=== PATIENT | male | born 1960 | race Caucasian/White ===

== ENCOUNTER 2021-01-06 21:24 | Inpatient (IN) | payer OTHER, SELFPAY ==
[~2021-01-06 21:24] MED LIST: Iopamidol-370 76% 500 ML 1 ML ONE
[2021-01-06 21:51] LABS: INR-International Normal Ratio 1.1; PTT 25.8 sec (22.9-36.1); Prothrombin Time 14.5 sec (12.0-14.7)
[2021-01-06 22:01] LABS: Hemoglobin 16.4 g/dL (14.0-18.0); Mean Corpuscular Hemoglobin 32.2 pg (27.0-31.0); Mean Corpuscular Volume 97.8 fL (78.0-98.0); Mean Platelet Volume 8.3 fL (7.4-10.4); Platelet Count 239 thou/uL (130-400); RBC Distribution Width 12.6 % (11.5-14.5); Red Blood Cell (RBC) Count 5.09 mill/uL (4.70-6.10); White Blood Cell (WBC) Count 28.3 thou/uL (4.8-10.8)
[2021-01-06 22:11] LABS: ALT (SGPT) 41 U/L (8-55); AST (SGOT) 70 U/L (5-34); Albumin 4.1 g/dL (3.5-5.0); Alkaline Phosphatase 112 U/L (40-110); Anion Gap 18 mmol/L (10-20); BUN (Urea Nitrogen) 26 mg/dL (8.4-25.7); Bilirubin, Total 0.4 mg/dL (0.2-1.2); Calc. Creatinine Clearance 0 mL/min (70-130); Calcium 8.7 mg/dL (7.8-10.44); Carbon Dioxide 22 mmol/L (22-29); Chloride 105 mmol/L (98-107); Globulin 2.8 g/dL (2.4-3.5); Glucose 109 mg/dL (70-105); Lipase 58 U/L (8-78); Potassium 4.5 mmol/L (3.5-5.1); Protein, Total 6.9 g/dL (6.0-8.3); Sodium 140 mmol/L (136-145)
[2021-01-06 22:13] LABS: Band 15 % (5-11); Eosinophils 1 % (0-10); Lymphocytes 7 % (21-51); MDiff Complete? YES; Monocytes 15 % (0-10); Neutrophil 61 % (42-75); Platelet Morphology Comment Appears Adequate; Reactive Lymphocytes 1 % (0-10)
[2021-01-06] MEDS ORDERED: Fentanyl 100 MCG/2 ML VIAL ONE (22:44)
[2021-01-06] MEDS ORDERED: Ketorolac Tromethamine 30 MG/ML VIAL ONE (22:44)
[2021-01-06] MEDS ORDERED: hydrALAZINE 20 MG/ML VIAL SLOW IVP PRN (23:06)
[2021-01-06] MEDS ORDERED: Dextrose 5% in Water 1,000 ML IV PRN (23:06)
[2021-01-06] MEDS ORDERED: Dextrose 50% Abboject 50 ML SYRINGE SLOW IVP PRN (23:06)
[2021-01-06] MEDS ORDERED: Ondansetron PF 4 MG/2 ML Vial IVP PRN (23:06)
[2021-01-06] MEDS ORDERED: Boostrix 0.5 ML (Tdap) VIAL ONE (23:13)
[2021-01-06] MEDS ORDERED: Cyclobenzaprine 10 MG TAB PO PRN (23:13)
[2021-01-07 00:26] LABS: Bacteria/HPF None Seen HPF (None Seen); Bilirubin Negative (Negative); Blood, Urine 2+ (Negative); Clarity Clear (Clear); Glucose, Urine (Dipstick) Normal (Negative); Ketone, Urine Negative (Negative); Leukocyte Negative Leu/uL (Negative); Nitrite Negative (Negative); Protein, Urine (Dipstick) 30 mg/dL (Neg-Trace); Squamous Epithelial 0-3 HPF (0-3); Urobilinogen Normal mg/dL (Less than 2); WBC/HPF 0-3 HPF (0-3); pH, Urine 5.5 (5.0-9.0)
[2021-01-07 00:28] LABS: Specific Gravity, Urine 1.049 (1.002-1.036)
[2021-01-07 00:47] LABS: Lactic Acid 3.8 mmol/L (0.5-2.2)
[2021-01-07] MEDS ORDERED: Lidocaine 1% w/Epinephrine 1:100K 20 ML VIAL ONE (00:53)
[2021-01-07] MEDS ORDERED: Lidocaine 1% (PF) 30 ML VIAL ONE (01:35)
[2021-01-07] MEDS: traMADol HCl 50 MG TAB PO SCH ×4 (02:43→18:33)
[2021-01-07] MEDS: Acetaminophen 500 MG TAB PO SCH ×4 (02:43→18:33)
[2021-01-07 02:47] VITALS: BMI 26.0
[2021-01-07] MEDS: Morphine 4 MG/ML VIAL SLOW IVP PRN ×3 (03:13→11:28)
[2021-01-07] MEDS: Sodium Chloride 0.9% 1,000 ML IV SCH ×3 (04:11→17:24)
[2021-01-07] MEDS: Ibuprofen 600 MG TAB PO SCH ×2 (04:29→13:00)
[2021-01-07 07:09] LABS: Anion Gap 12 mmol/L (10-20); BUN (Urea Nitrogen) 25 mg/dL (8.4-25.7); Calc. Creatinine Clearance 133 mL/min (70-130); Calcium 8.5 mg/dL (7.8-10.44); Carbon Dioxide 24 mmol/L (22-29); Chloride 107 mmol/L (98-107); Glucose 128 mg/dL (70-105); Phosphorus 3.5 mg/dL (2.3-4.7); Potassium 4.5 mmol/L (3.5-5.1); Sodium 138 mmol/L (136-145)
[2021-01-07 07:12] LABS: Hemoglobin 15.8 g/dL (14.0-18.0); Mean Corpuscular HGB CONC 33.9 g/dL (32.0-36.0); Mean Corpuscular Hemoglobin 32.6 pg (27.0-31.0); Mean Corpuscular Volume 96.2 fL (78.0-98.0); Mean Platelet Volume 8.3 fL (7.4-10.4); Platelet Count 228 thou/uL (130-400); RBC Distribution Width 12.4 % (11.5-14.5); Red Blood Cell (RBC) Count 4.84 mill/uL (4.70-6.10); White Blood Cell (WBC) Count 14.8 thou/uL (4.8-10.8)
[2021-01-07 08:40] LABS: Band 46 % (5-11); Eosinophils 1 % (0-10); Lymphocytes 4 % (21-51); MDiff Complete? YES; Monocytes 10 % (0-10); Neutrophil 39 % (42-75); Platelet Morphology Comment Appears Adequate; RBC Morphology Normal
[2021-01-07] MEDS: Famotidine/PF 20 mg/2ml Vial SLOW IVP SCH ×2 (08:41→21:03)
[2021-01-07] MEDS: CEFAZOLIN 2 GM in Premix Bag 1 BAG IVPB SCH ×2 (08:41→17:25)
[2021-01-07] MEDS: Gabapentin 300 MG CAP PO SCH ×2 (08:41→15:33)
[2021-01-07] MEDS: Polyethylene Glycol 3350 17 GM Packet PO SCH (08:42)
[2021-01-07] MEDS: Senokot S 8.6-50 MG TAB PO SCH ×2 (08:42→21:03)
[2021-01-07] MEDS ORDERED: FLU VACC QS2020-21(6MOS UP)/PF 60 MCG/0.5 ML SYRINGE IM ONE (09:00)
[2021-01-07 09:07] LABS: SARS-CoV-2 PCR by NAA Not Detected (NotDetected)
[2021-01-07] MEDS ORDERED: Dexamethasone 20 MG/5 ML VIAL ONE (09:51)
[2021-01-07] MEDS ORDERED: Glycopyrrolate 0.2 MG/ML 5 ML SYRINGE ONE (09:51)
[2021-01-07] MEDS ORDERED: PROPOFOL 200 MG/20 ML VIAL ONE (09:51)
[2021-01-07] MEDS ORDERED: Ondansetron PF 4 MG/2 ML Vial ONE (09:51)
[2021-01-07] MEDS ORDERED: Rocuronium Bromide 10 MG/ML (10ML VIAL) ONE (09:51)
[2021-01-07] MEDS ORDERED: PHENYLEPHRINE-NS 100 MCG/ML 10 ML SYRINGE ONE (09:51)
[2021-01-07] MEDS ORDERED: Lidocaine 1% PF 5 ML VIAL ONE (09:51)
[2021-01-07 13:09] LABS: #Lymphocytes 0.9 thou/uL (1.20-3.40); #Monocytes 1.3 thou/uL (0.11-0.59); #Neutrophils 10.3 thou/uL (1.40-6.50); %Basophils 0.1 % (0.0-1.0); %Lymphocytes 6.8 % (21.0-51.0); %Monocytes 10.7 % (0.0-10.0); %Neutrophils 82.4 % (42.0-75.0); Hemoglobin 15.7 g/dL (14.0-18.0); Mean Corpuscular HGB CONC 32.9 g/dL (32.0-36.0); Mean Corpuscular Hemoglobin 31.7 pg (27.0-31.0); Mean Corpuscular Volume 96.4 fL (78.0-98.0); Platelet Count 221 thou/uL (130-400); RBC Distribution Width 12.6 % (11.5-14.5); Red Blood Cell (RBC) Count 4.94 mill/uL (4.70-6.10); White Blood Cell (WBC) Count 12.5 thou/uL (4.8-10.8)
[2021-01-07 13:34] LABS: Lactic Acid 1.2 mmol/L (0.5-2.2)
[2021-01-07] MEDS ORDERED: CEFAZOLIN 2 GM in Premix Bag 1 BAG IVPB SCH (14:00)
[2021-01-07] MEDS ORDERED: Iopamidol-370 76% 500 ML 1 ML ONE (14:25)
[2021-01-07] MEDS ORDERED: Vancomycin 1 GM in Premix Bag 1 BAG IVPB SCH (16:00)
[2021-01-07 16:42] LABS: INR-International Normal Ratio 1.2; PTT 27.8 sec (22.9-36.1); Prothrombin Time 15.9 sec (12.0-14.7)
[2021-01-07] MEDS ORDERED: Fentanyl 250 MCG/5 ML VIAL ONE (16:55)
[2021-01-07] MEDS ORDERED: Piperacillin/Tazobactam 3.375 GM VIAL ONE (17:16)
[2021-01-07] MEDS ORDERED: Ondansetron HCl/PF 4 MG/2 ML Vial IVP PRN (18:44)
[2021-01-07] MEDS ORDERED: Promethazine HCl 25 MG/ML VIAL SLOW IVP PRN (18:44)
[2021-01-07] MEDS ORDERED: Promethazine HCl 25 MG/ML VIAL IM PRN ×2 (18:44→19:07)
[2021-01-07 18:57] LABS: Amphetamine Not Detected (NotDetected); Barbiturates Screen Not Detected (NotDetected); Benzodiazepine Screen Not Detected (NotDetected); Cocaine Metabolite Screen Not Detected (NotDetected); Medtox Control Line Valid? VALID (VALID); Medtox Reader # READER 1; Methadone Not Detected (NotDetected); Methamphetamine Not Detected (NotDetected); Opiate Screen Not Detected (NotDetected); Oxycodone Screen Not Detected (NotDetected); Phencyclidine (PCP) Not Detected (NotDetected); THC/Cannabinoid Screen Not Detected (NotDetected); Tricyclic Screen Not Detected (NotDetected)
[2021-01-07] MEDS ORDERED: D5 0.9% NS w/ 20 mEq KCl 1,000 ML IV SCH (19:00)
[2021-01-07] MEDS ORDERED: diphenhydrAMINE 50 MG/ML VIAL IVP PRN (19:07)
[2021-01-07] MEDS ORDERED: Naloxone HCl 0.4 mg/ml Vial IV PRN (19:07)
[2021-01-07] MEDS ORDERED: diphenhydrAMINE 50 MG/ML VIAL IM PRN (19:07)
[2021-01-07] MEDS ORDERED: diphenhydrAMINE 25 MG CAP PO PRN (19:07)
[2021-01-07] MEDS ORDERED: Ketorolac Tromethamine 30 MG/ML VIAL ONE (19:12)
[2021-01-07] MEDS ORDERED: HYDROmorphone 10 mg/100 ml CADD IVPB PRN (19:15)
[2021-01-07] MEDS ORDERED: Communication Order-Pharmacy FS SCH (19:15)
[2021-01-07] MEDS: Ketorolac Tromethamine 30 MG/ML VIAL IVP SCH (21:02)
[2021-01-07] MEDS: D5 0.9% NS w/ 20 mEq KCl 1,000 ML IV SCH (21:12)
[2021-01-07] MEDS: MEROPENEM 1 GM/50 ML 1 GM in Premix Bag 1 BAG IVPB SCH (21:15)
[2021-01-07] MEDS ORDERED: Meropenem 2 GM in Admixture Fee 1 EACH IVPB SCH (22:00)
[2021-01-07] MEDS ORDERED: Piperacillin/Tazobactam 3.375 GM in Sodium Chloride 0.9% 100 ML IVPB SCH (23:59)
[2021-01-07] MEDS ORDERED: Ketorolac Tromethamine 30 MG/ML VIAL IVP SCH (23:59)
[2021-01-08] MEDS: Ketorolac Tromethamine 30 MG/ML VIAL IVP SCH ×6 (01:47→21:42)
[2021-01-08] MEDS: MEROPENEM 1 GM/50 ML 1 GM in Premix Bag 1 BAG IVPB SCH ×3 (03:09→21:32)
[2021-01-08] MEDS: D5 0.9% NS w/ 20 mEq KCl 1,000 ML IV SCH ×3 (05:21→21:31)
[2021-01-08 06:08] LABS: Band 40 % (5-11); Hemoglobin 14.5 g/dL (14.0-18.0); Lymphocytes 5 % (21-51); MDiff Complete? YES; Mean Corpuscular HGB CONC 31.1 g/dL (32.0-36.0); Mean Corpuscular Hemoglobin 30.5 pg (27.0-31.0); Mean Corpuscular Volume 98.2 fL (78.0-98.0); Mean Platelet Volume 8.7 fL (7.4-10.4); Monocytes 12 % (0-10); Neutrophil 43 % (42-75); Platelet Count 202 thou/uL (130-400); Platelet Morphology Comment Appears Adequate; RBC Distribution Width 12.5 % (11.5-14.5); RBC Morphology Normal; Red Blood Cell (RBC) Count 4.73 mill/uL (4.70-6.10); White Blood Cell (WBC) Count 12.8 thou/uL (4.8-10.8)
[2021-01-08 06:10] LABS: Anion Gap 7 mmol/L (10-20); BUN (Urea Nitrogen) 22 mg/dL (8.4-25.7); Calc. Creatinine Clearance 126 mL/min (70-130); Calcium 7.8 mg/dL (7.8-10.44); Carbon Dioxide 29 mmol/L (22-29); Chloride 108 mmol/L (98-107); Glucose 147 mg/dL (70-105); Magnesium 2.3 mg/dL (1.6-2.6); Phosphorus 1.9 mg/dL (2.3-4.7); Potassium 4.9 mmol/L (3.5-5.1); Sodium 139 mmol/L (136-145)
[2021-01-08] MEDS ORDERED: Sodium Phosphate 30 MMOL in Sodium Chloride 0.9% 100 ML IVPB SCH (08:00)
[2021-01-08] MEDS: Senokot S 8.6-50 MG TAB PO SCH ×2 (08:51→21:27)
[2021-01-08] MEDS: Famotidine/PF 20 mg/2ml Vial SLOW IVP SCH ×2 (08:51→21:32)
[2021-01-08] MEDS: Polyethylene Glycol 3350 17 GM Packet PO SCH (08:52)
[2021-01-08] MEDS ORDERED: Lidocaine 1% PF 5 ML VIAL ONE (10:06)
[2021-01-08] MEDS ORDERED: Ondansetron PF 4 MG/2 ML Vial ONE (10:06)
[2021-01-08] MEDS ORDERED: PROPOFOL 200 MG/20 ML VIAL ONE (10:06)
[2021-01-08] MEDS ORDERED: Rocuronium Bromide 10 MG/ML (10ML VIAL) ONE (10:06)
[2021-01-08] MEDS ORDERED: Dexamethasone 20 MG/5 ML VIAL ONE (10:06)
[2021-01-08] MEDS ORDERED: Glycopyrrolate 0.2 MG/ML 5 ML SYRINGE ONE (10:06)
[2021-01-08] MEDS ORDERED: Succinylcholine 200 MG/10 ml SYRINGE FS ONE (10:06)
[2021-01-08] MEDS ORDERED: Vancomycin 1 GM/200 ML BAG ONE (16:54)
[2021-01-08] MEDS ORDERED: Bacitracin Zinc Ointment 30 gm TUBE ONE (16:55)
[2021-01-08] MEDS ORDERED: Sodium Chloride 0.9% 10 ML ONE (16:55)
[2021-01-08] MEDS ORDERED: Bupivacaine 0.25% HCL 30 ML VIAL ONE (16:55)
[2021-01-08] MEDS ORDERED: Fentanyl 100 MCG/2 ML VIAL ONE ×2 (17:21→20:48)
[2021-01-08] MEDS ORDERED: Meperidine HCl/PF 25 MG/ML VIAL SLOW IVP PRN (17:24)
[2021-01-08] MEDS ORDERED: Promethazine HCl 25 MG/ML VIAL SLOW IVP PRN (17:24)
[2021-01-08] MEDS ORDERED: Promethazine HCl 25 MG/ML VIAL IM PRN (17:24)
[2021-01-08] MEDS ORDERED: HYDROmorphone 2 MG/ML VIAL SLOW IVP PRN (17:24)
[2021-01-08] MEDS ORDERED: Ondansetron HCl/PF 4 MG/2 ML Vial IVP PRN (17:38)
[2021-01-09] MEDS: HYDROmorphone 10 mg/100 ml CADD IVPB PRN (01:28)
[2021-01-09] MEDS: Ketorolac Tromethamine 30 MG/ML VIAL IVP SCH ×5 (04:38→22:38)
[2021-01-09] MEDS: MEROPENEM 1 GM/50 ML 1 GM in Premix Bag 1 BAG IVPB SCH ×3 (04:38→20:13)
[2021-01-09 06:32] LABS: Hemoglobin 12.3 g/dL (14.0-18.0); Mean Corpuscular HGB CONC 31.7 g/dL (32.0-36.0); Mean Corpuscular Hemoglobin 31.9 pg (27.0-31.0); Mean Platelet Volume 8.7 fL (7.4-10.4); Platelet Count 164 thou/uL (130-400); RBC Distribution Width 12.3 % (11.5-14.5); Red Blood Cell (RBC) Count 3.86 mill/uL (4.70-6.10); White Blood Cell (WBC) Count 11.7 thou/uL (4.8-10.8)
[2021-01-09 06:58] LABS: Anion Gap 9 mmol/L (10-20); BUN (Urea Nitrogen) 23 mg/dL (8.4-25.7); Calc. Creatinine Clearance 142 mL/min (70-130); Calcium 7.5 mg/dL (7.8-10.44); Carbon Dioxide 24 mmol/L (22-29); Chloride 111 mmol/L (98-107); Glucose 121 mg/dL (70-105); Magnesium 2.6 mg/dL (1.6-2.6); Sodium 139 mmol/L (136-145)
[2021-01-09] MEDS: Polyethylene Glycol 3350 17 GM Packet PO SCH (09:03)
[2021-01-09] MEDS: Senokot S 8.6-50 MG TAB PO SCH ×2 (09:03→20:13)
[2021-01-09] MEDS: Famotidine/PF 20 mg/2ml Vial SLOW IVP SCH ×2 (09:03→20:13)
[2021-01-09] MEDS ORDERED: SODIUM PHOSPHATE 30 MMOL in Sodium Chloride 0.9% 250 ML 250 ML IVPB SCH (11:15)
[2021-01-09] MEDS ORDERED: Dextrose 5%-Lactated Ringers 1,000 ML IV SCH (11:30)
[2021-01-09] MEDS: D5 0.9% NS w/ 20 mEq KCl 1,000 ML IV SCH (13:28)
[2021-01-09] MEDS: Lactated Ringer's 1,000 ML IV SCH ×2 (14:26→20:13)
[2021-01-10] MEDS: MEROPENEM 1 GM/50 ML 1 GM in Premix Bag 1 BAG IVPB SCH ×3 (03:21→21:25)
[2021-01-10 05:58] LABS: #Eosinphils 0.1 thou/uL (0.0-0.7); #Lymphocytes 1.4 thou/uL (1.20-3.40); #Monocytes 1.2 thou/uL (0.11-0.59); #Neutrophils 8.7 thou/uL (1.40-6.50); %Basophils 0.1 % (0.0-1.0); %Eosinophils 0.6 % (0.0-10.0); %Lymphocytes 12.4 % (21.0-51.0); %Monocytes 10.6 % (0.0-10.0); %Neutrophils 76.4 % (42.0-75.0); Hemoglobin 12.2 g/dL (14.0-18.0); Mean Corpuscular HGB CONC 32.4 g/dL (32.0-36.0); Mean Corpuscular Hemoglobin 31.8 pg (27.0-31.0); Mean Corpuscular Volume 98.1 fL (78.0-98.0); Mean Platelet Volume 8.2 fL (7.4-10.4); Platelet Count 183 thou/uL (130-400); RBC Distribution Width 12.3 % (11.5-14.5); Red Blood Cell (RBC) Count 3.82 mill/uL (4.70-6.10); White Blood Cell (WBC) Count 11.4 thou/uL (4.8-10.8)
[2021-01-10 06:54] LABS: Anion Gap 12 mmol/L (10-20); BUN (Urea Nitrogen) 21 mg/dL (8.4-25.7); Calc. Creatinine Clearance 156 mL/min (70-130); Calcium 7.8 mg/dL (7.8-10.44); Carbon Dioxide 25 mmol/L (22-29); Chloride 109 mmol/L (98-107); Glucose 79 mg/dL (70-105); Magnesium 2.5 mg/dL (1.6-2.6); Potassium 4.3 mmol/L (3.5-5.1); Sodium 142 mmol/L (136-145)
[2021-01-10 06:56] LABS: Phosphorus 1.9 mg/dL (2.3-4.7)
[2021-01-10] MEDS: Polyethylene Glycol 3350 17 GM Packet PO SCH (09:55)
[2021-01-10] MEDS: Famotidine/PF 20 mg/2ml Vial SLOW IVP SCH ×2 (09:55→21:25)
[2021-01-10] MEDS: Senokot S 8.6-50 MG TAB PO SCH (09:55)
[2021-01-10] MEDS: Sodium Phosphate 30 MMOL in Sodium Chloride 0.9% 250 ML 250 ML IVPB SCH ×2 (09:55→17:25)
[2021-01-10] MEDS: Ketorolac Tromethamine 30 MG/ML VIAL IVP SCH (21:25)
[2021-01-10] MEDS ORDERED: Potassium Chloride 10 MEQ in Dextrose 5 % And 0.9 % NaCl 1,000 ML IV SCH (23:55)
[2021-01-11] MEDS: MEROPENEM 1 GM/50 ML 1 GM in Premix Bag 1 BAG IVPB SCH ×3 (04:03→21:18)
[2021-01-11 05:29] LABS: #Eosinphils 0.1 thou/uL (0.0-0.7); #Lymphocytes 1.4 thou/uL (1.20-3.40); #Monocytes 1.9 thou/uL (0.11-0.59); %Basophils 0.1 % (0.0-1.0); %Lymphocytes 10.3 % (21.0-51.0); %Monocytes 13.9 % (0.0-10.0); %Neutrophils 74.8 % (42.0-75.0); Hemoglobin 13.9 g/dL (14.0-18.0); Mean Corpuscular Hemoglobin 32.2 pg (27.0-31.0); Mean Corpuscular Volume 97.7 fL (78.0-98.0); Platelet Count 192 thou/uL (130-400); RBC Distribution Width 12.2 % (11.5-14.5); Red Blood Cell (RBC) Count 4.32 mill/uL (4.70-6.10); White Blood Cell (WBC) Count 13.3 thou/uL (4.8-10.8)
[2021-01-11] MEDS: HYDROmorphone 10 mg/100 ml CADD IVPB PRN (06:18)
[2021-01-11 06:31] LABS: Anion Gap 11 mmol/L (10-20); BUN (Urea Nitrogen) 17 mg/dL (8.4-25.7); Calc. Creatinine Clearance 169 mL/min (70-130); Carbon Dioxide 26 mmol/L (22-29); Chloride 108 mmol/L (98-107); Glucose 106 mg/dL (70-105); Phosphorus 2.6 mg/dL (2.3-4.7); Potassium 4.2 mmol/L (3.5-5.1); Sodium 141 mmol/L (136-145)
[2021-01-11] MEDS: Polyethylene Glycol 3350 17 GM Packet PO SCH (09:45)
[2021-01-11] MEDS: Enoxaparin Sodium 30 MG/0.3 ML SYRINGE SC SCH ×2 (09:47→21:19)
[2021-01-11] MEDS ORDERED: Sodium Phosphate 30 MMOL in Sodium Chloride 0.9% 250 ML 250 ML IVPB SCH (10:00)
[2021-01-11] MEDS: Famotidine/PF 20 mg/2ml Vial SLOW IVP SCH ×2 (10:03→21:19)
[2021-01-11] MEDS: Potassium Chloride 10 MEQ in Dextrose 5 % And 0.9 % NaCl 1,000 ML IV SCH ×2 (17:43→18:38)
[2021-01-11] MEDS: Ketorolac Tromethamine 30 MG/ML VIAL IVP SCH (21:15)
[2021-01-11] MEDS: Acetaminophen 500 MG TAB PO SCH (21:19)
[2021-01-11] MEDS: Gabapentin 300 MG CAP PO SCH (21:19)
[2021-01-11] MEDS: Senokot S 8.6-50 MG TAB PO SCH (21:20)
[2021-01-12] MEDS: Acetaminophen 500 MG TAB PO SCH ×4 (04:12→20:25)
[2021-01-12] MEDS: MEROPENEM 1 GM/50 ML 1 GM in Premix Bag 1 BAG IVPB SCH (05:03)
[2021-01-12] MEDS: Potassium Chloride 10 MEQ in Dextrose 5 % And 0.9 % NaCl 1,000 ML IV SCH ×3 (05:04→19:25)
[2021-01-12 06:06] LABS: Hemoglobin 13.1 g/dL (14.0-18.0); Mean Corpuscular HGB CONC 33.1 g/dL (32.0-36.0); Mean Corpuscular Hemoglobin 31.9 pg (27.0-31.0); Mean Corpuscular Volume 96.3 fL (78.0-98.0); Platelet Count 212 thou/uL (130-400); RBC Distribution Width 12.2 % (11.5-14.5); Red Blood Cell (RBC) Count 4.12 mill/uL (4.70-6.10); White Blood Cell (WBC) Count 14.7 thou/uL (4.8-10.8)
[2021-01-12 06:07] LABS: Anion Gap 10 mmol/L (10-20); BUN (Urea Nitrogen) 15 mg/dL (8.4-25.7); Calc. Creatinine Clearance 191 mL/min (70-130); Carbon Dioxide 25 mmol/L (22-29); Chloride 108 mmol/L (98-107); Glucose 105 mg/dL (70-105); Phosphorus 2.8 mg/dL (2.3-4.7); Sodium 139 mmol/L (136-145)
[2021-01-12] MEDS ORDERED: traMADol HCl 50 MG TAB PO PRN (08:26)
[2021-01-12] MEDS ORDERED: Ibuprofen 200 MG TAB PO PRN (08:26)
[2021-01-12] MEDS: Senokot S 8.6-50 MG TAB PO SCH ×2 (08:38→20:25)
[2021-01-12] MEDS: Famotidine 20 MG TAB PO SCH ×2 (08:38→20:25)
[2021-01-12] MEDS: Gabapentin 300 MG CAP PO SCH ×3 (08:39→20:25)
[2021-01-12] MEDS: Enoxaparin Sodium 30 MG/0.3 ML SYRINGE SC SCH ×2 (08:39→20:26)
[2021-01-12] MEDS: Polyethylene Glycol 3350 17 GM Packet PO SCH (08:50)
[2021-01-12 09:15] LABS: Band 8 % (5-11); Eosinophils 2 % (0-10); Lymphocytes 13 % (21-51); MDiff Complete? YES; Monocytes 17 % (0-10); Myelocyte 2 % (0-0); Neutrophil 58 % (42-75); Platelet Morphology Comment Appears Adequate; Polychromasia SLIGHT = 2-3 cells (100X) (0-2/hpf)
[2021-01-12] MEDS ORDERED: Furosemide 20 MG/2 ML VIAL SLOW IVP SCH (11:00)
[2021-01-13] MEDS: Acetaminophen 500 MG TAB PO SCH ×4 (03:02→19:48)
[2021-01-13] MEDS: Potassium Chloride 10 MEQ in Dextrose 5 % And 0.9 % NaCl 1,000 ML IV SCH ×4 (03:06→21:20)
[2021-01-13] MEDS: Enoxaparin Sodium 30 MG/0.3 ML SYRINGE SC SCH ×2 (08:30→19:49)
[2021-01-13] MEDS: Polyethylene Glycol 3350 17 GM Packet PO SCH (08:30)
[2021-01-13] MEDS: Gabapentin 300 MG CAP PO SCH ×3 (08:31→19:48)
[2021-01-13] MEDS: Senokot S 8.6-50 MG TAB PO SCH ×2 (08:32→19:49)
[2021-01-13] MEDS: Famotidine 20 MG TAB PO SCH ×2 (08:32→19:49)
[2021-01-13] MEDS: Amlodipine 5 MG TAB PO SCH (09:22)
[2021-01-13] MEDS: traMADol HCl 50 MG TAB PO PRN ×2 (12:14→17:48)
[2021-01-13] MEDS: Cyclobenzaprine 10 MG TAB PO PRN (19:48)
[2021-01-14] MEDS: Cyclobenzaprine 10 MG TAB PO PRN ×2 (03:20→20:07)
[2021-01-14] MEDS: Acetaminophen 500 MG TAB PO SCH ×4 (03:20→20:07)
[2021-01-14] MEDS: traMADol HCl 50 MG TAB PO PRN (07:00)
[2021-01-14] MEDS: Gabapentin 300 MG CAP PO SCH ×3 (09:37→20:07)
[2021-01-14] MEDS: Senokot S 8.6-50 MG TAB PO SCH ×2 (09:37→20:07)
[2021-01-14] MEDS: Amlodipine 5 MG TAB PO SCH (09:38)
[2021-01-14] MEDS: Polyethylene Glycol 3350 17 GM Packet PO SCH (09:40)
[2021-01-14] MEDS: Enoxaparin Sodium 30 MG/0.3 ML SYRINGE SC SCH ×2 (09:40→20:07)
[2021-01-14] MEDS: traMADol HCl 50 MG TAB PO SCH ×2 (13:34→17:49)
[2021-01-14] MEDS: GUAIFENESIN SF SOLN 200 MG/10 ML UDCUP PO SCH ×3 (13:35→20:08)
[2021-01-14] MEDS: Famotidine 20 MG TAB PO SCH (14:35)
[2021-01-15] MEDS: traMADol HCl 50 MG TAB PO SCH ×4 (00:04→17:25)
[2021-01-15] MEDS: GUAIFENESIN SF SOLN 200 MG/10 ML UDCUP PO SCH ×6 (00:05→20:37)
[2021-01-15] MEDS: Acetaminophen 500 MG TAB PO SCH ×4 (03:27→20:36)
[2021-01-15] MEDS: Gabapentin 300 MG CAP PO SCH ×3 (09:04→20:36)
[2021-01-15] MEDS: Enoxaparin Sodium 30 MG/0.3 ML SYRINGE SC SCH ×2 (09:05→20:37)
[2021-01-15] MEDS: Polyethylene Glycol 3350 17 GM Packet PO SCH (09:05)
[2021-01-15] MEDS: Amlodipine 5 MG TAB PO SCH (09:05)
[2021-01-15] MEDS: Senokot S 8.6-50 MG TAB PO SCH ×2 (09:05→20:44)
[2021-01-15] MEDS: Cyclobenzaprine 10 MG TAB PO PRN (20:36)
[2021-01-16] MEDS: traMADol HCl 50 MG TAB PO SCH ×3 (00:01→12:45)
[2021-01-16] MEDS: GUAIFENESIN SF SOLN 200 MG/10 ML UDCUP PO SCH ×4 (00:01→12:45)
[2021-01-16] MEDS: Acetaminophen 500 MG TAB PO SCH ×2 (04:13→08:14)
[2021-01-16] MEDS: Cyclobenzaprine 10 MG TAB PO PRN (04:15)
[2021-01-16] MEDS: Enoxaparin Sodium 30 MG/0.3 ML SYRINGE SC SCH (08:08)
[2021-01-16] MEDS: Gabapentin 300 MG CAP PO SCH (08:09)
[2021-01-16] MEDS: Amlodipine 5 MG TAB PO SCH (08:09)
[2021-01-16] MEDS: Polyethylene Glycol 3350 17 GM Packet PO SCH (09:21)
[2021-01-16] MEDS: Senokot S 8.6-50 MG TAB PO SCH (09:21)
[2021-01-16 11:00] VITALS: BP 124/79; TEMP 98.3
== END 2021-01-16 16:34 | disposition home or self-care (01) | DRG 957 ==
LOC: ERS 21:24 → SURG B 23:06
PROVIDERS: ADMIT Specialist; ATTEND Specialist
PROC: 3E0234Z Introduction of Serum, Toxoid and Vaccine into Muscle, Percutaneous Approach (ICD-10-PCS; 2021-01-06)
PROC: 0DQ80ZZ Repair Small Intestine, Open Approach (ICD-10-PCS; 2021-01-07)
PROC: 0PSR04Z Reposition Right Thumb Phalanx with Internal Fixation Device, Open Approach (ICD-10-PCS; principal; 2021-01-08)
PROC: 0JBJ0ZZ Excision of Right Hand Subcutaneous Tissue and Fascia, Open Approach (ICD-10-PCS; 2021-01-08)
PROC: 01Q60ZZ Repair Radial Nerve, Open Approach (ICD-10-PCS; 2021-01-08)
PROC: 0HQQXZZ Repair Finger Nail, External Approach (ICD-10-PCS; 2021-01-08)
PROC: 0HBQXZZ Excision of Finger Nail, External Approach (ICD-10-PCS; 2021-01-08)
DX: S62.511B Displaced fracture of proximal phalanx of right thumb, initial encounter for open fracture (principal); S36.032A Major laceration of spleen, initial encounter; S22.5XXA Flail chest, initial encounter for closed fracture; Z23 Encounter for immunization; Z20.822 Contact with and (suspected) exposure to COVID-19; K65.9 Peritonitis, unspecified; S27.0XXA Traumatic pneumothorax, initial encounter; S32.039A Unspecified fracture of third lumbar vertebra, initial encounter for closed fracture; H54.40 Blindness, one eye, unspecified eye; F17.210 Nicotine dependence, cigarettes, uncomplicated; S00.83XA Contusion of other part of head, initial encounter; S61.411A Laceration without foreign body of right hand, initial encounter; S02.2XXA Fracture of nasal bones, initial encounter for closed fracture; S62.521A Displaced fracture of distal phalanx of right thumb, initial encounter for closed fracture; S62.612A Displaced fracture of proximal phalanx of right middle finger, initial encounter for closed fracture; E83.39 Other disorders of phosphorus metabolism; S42.112A Displaced fracture of body of scapula, left shoulder, initial encounter for closed fracture; K59.00 Constipation, unspecified; S36.438 Laceration of other part of small intestine; V44.5XXA Car driver injured in collision with heavy transport vehicle or bus in traffic accident, initial encounter; Z88.0 Allergy status to penicillin
CPT/HCPCS: 36415; 36416; 51702; 70450; 71045; 71260; 72125; 72170; 74018; 74177; 76000; 80048; 80053; 80306; 80307; 81003; 81015; 83605; 83690; 83735; 84100; 85025; 85027; 85610; 85730; 86850; 86900; 86901; 87070; 87205; 87635; 90471; 90715; 94640; 96365; 96375; C1713; G0390; J0690; J1100; J1650; J1885; J1940; J2001; J2185; J2270; J2405; J2543; J2704; J3010; J3370; J3480; J3490; J7042; J7050; J7620; Q9967; S0020; S0028; U0003; U0005

== ENCOUNTER 2021-02-19 16:31 | Inpatient (IN) | payer OTHER, SELFPAY ==
[2021-02-19] MEDS ORDERED: Sodium Chloride 0.9% 10 ML ONE (17:50)
[2021-02-19 17:53] LABS: SARS-CoV-2 NAA Rapid Test Not Detected (NotDetected)
[2021-02-19 17:53] LABS: #Basophils 0.1 thou/uL (0.0-0.2); #Eosinphils 3.2 thou/uL (0.0-0.7); #Lymphocytes 2.6 thou/uL (1.20-3.40); #Monocytes 1.3 thou/uL (0.11-0.59); #Neutrophils 6.5 thou/uL (1.40-6.50); %Eosinophils 23.5 % (0.0-10.0); %Lymphocytes 19.2 % (21.0-51.0); %Monocytes 9.1 % (0.0-10.0); %Neutrophils 47.3 % (42.0-75.0); Hemoglobin 14.8 g/dL (14.0-18.0); Mean Corpuscular HGB CONC 32.7 g/dL (32.0-36.0); Mean Corpuscular Hemoglobin 31.4 pg (27.0-31.0); Mean Corpuscular Volume 96.3 fL (78.0-98.0); Mean Platelet Volume 7.3 fL (7.4-10.4); Platelet Count 378 thou/uL (130-400); RBC Distribution Width 12.4 % (11.5-14.5); Red Blood Cell (RBC) Count 4.72 mill/uL (4.70-6.10); White Blood Cell (WBC) Count 13.8 thou/uL (4.8-10.8)
[2021-02-19 18:12] LABS: Anion Gap 13 mmol/L (10-20); BUN (Urea Nitrogen) 13 mg/dL (8.4-25.7); Calc. Creatinine Clearance 0 mL/min (70-130); Carbon Dioxide 30 mmol/L (22-29); Chloride 100 mmol/L (98-107); Glucose 85 mg/dL (70-105); Sodium 139 mmol/L (136-145)
[2021-02-19 18:27] LABS: Bacteria/HPF None Seen HPF (None Seen); Bilirubin Negative (Negative); Blood, Urine Negative (Negative); Clarity Clear (Clear); Glucose, Urine (Dipstick) Normal (Negative); Ketone, Urine Negative (Negative); Leukocyte Negative Leu/uL (Negative); Nitrite Negative (Negative); Protein, Urine (Dipstick) 20 mg/dL (Neg-Trace); RBC/HPF 0-3 HPF (0-3); Specific Gravity, Urine 1.027 (1.002-1.036); Squamous Epithelial 0-3 HPF (0-3); WBC/HPF 0-3 HPF (0-3)
[2021-02-19] MEDS ORDERED: Vancomycin 1 GM/200 ML BAG ONE (20:20)
[2021-02-19] MEDS ORDERED: HYDROcodone/Acetaminophen 5/325 mg Tablet ONE (20:20)
[2021-02-19] MEDS ORDERED: HYDROcodone/Acetaminophen 5/325 mg Tablet PO SCH (22:45)
[2021-02-19] MEDS ORDERED: Morphine 4 MG/ML VIAL SLOW IVP PRN (22:45)
[2021-02-19] MEDS: Vancomycin 1 GM in Premix Bag 1 BAG IVPB SCH (22:46)
[2021-02-19] MEDS: Dextrose 5 % And 0.9 % NaCl 1,000 ML IV SCH (23:14)
[2021-02-20 00:06] VITALS: BMI 26.3
[2021-02-20] MEDS ORDERED: Bacitracin Zinc Ointment 30 gm TUBE ONE (07:59)
[2021-02-20] MEDS ORDERED: Bupivacaine PF 0.5% 30 ML VIAL ONE (07:59)
[2021-02-20] MEDS ORDERED: Fentanyl 100 MCG/2 ML VIAL ONE (08:01)
[2021-02-20] MEDS ORDERED: PROPOFOL 200 MG/20 ML VIAL ONE (08:27)
[2021-02-20] MEDS ORDERED: Ketorolac Tromethamine 30 MG/ML VIAL ONE (08:27)
[2021-02-20] MEDS ORDERED: PHENYLEPHRINE-NS 100 MCG/ML 10 ML SYRINGE ONE (08:27)
[2021-02-20] MEDS ORDERED: Lidocaine 1% PF 5 ML VIAL ONE (08:27)
[2021-02-20] MEDS ORDERED: ePHEDrine Sulfate 50 MG/10 ML VIAL ONE (08:27)
[2021-02-20] MEDS ORDERED: Dexamethasone 20 MG/5 ML VIAL ONE (08:27)
[2021-02-20] MEDS ORDERED: Ondansetron PF 4 MG/2 ML Vial ONE (08:27)
[2021-02-20] MEDS ORDERED: Sodium Chloride 0.9% 30 ML ONE (08:37)
[2021-02-20] MEDS ORDERED: Tobramycin Sulfate 1.2 GM VIAL ONE (08:41)
[2021-02-20] MEDS ORDERED: Sodium Chloride 0.9% 10 ML ONE (09:27)
[2021-02-20] MEDS ORDERED: Promethazine HCl 25 MG/ML VIAL IM PRN (09:41)
[2021-02-20] MEDS ORDERED: Promethazine HCl 25 MG/ML VIAL SLOW IVP PRN (09:41)
[2021-02-20] MEDS ORDERED: Ondansetron HCl/PF 4 MG/2 ML Vial IVP PRN (09:41)
[2021-02-20] MEDS: Vancomycin 1.5 GRAM/300 ML BAG 1.5 GM in Premix Bag 1 BAG IVPB SCH (12:41)
[2021-02-20] MEDS: Dextrose 5 % And 0.9 % NaCl 1,000 ML IV SCH (12:44)
[2021-02-20] MEDS: HYDROcodone/Acetaminophen 7.5/325 mg Tablet PO PRN ×2 (12:46→22:57)
[2021-02-20] MEDS: Vancomycin 1 GM in Premix Bag 1 BAG IVPB SCH (17:42)
[2021-02-21] MEDS: Vancomycin 1.5 GRAM/300 ML BAG 1.5 GM in Premix Bag 1 BAG IVPB SCH (00:50)
[2021-02-21] MEDS: Dextrose 5 % And 0.9 % NaCl 1,000 ML IV SCH (01:52)
[2021-02-21 04:33] VITALS: TEMP 98
[2021-02-21] MEDS: HYDROcodone/Acetaminophen 7.5/325 mg Tablet PO PRN (08:26)
[2021-02-21 11:35] VITALS: BP 141/74
== END 2021-02-21 14:43 | disposition home or self-care (01) | DRG 516 ==
LOC: SDC 16:31 → SURG B 17:15
PROVIDERS: ADMIT Orthopaedic Surgery Hand Surgery; ATTEND Orthopaedic Surgery Hand Surgery
PROC: 0PBT0ZZ Excision of Right Finger Phalanx, Open Approach (ICD-10-PCS; principal; 2021-02-19)
PROC: 0PP Upper Bones, Removal (ICD-10-PCS; 2021-02-19)
PROC: 3E0V329 Introduction of Other Anti-infective into Bones, Percutaneous Approach (ICD-10-PCS; 2021-02-19)
DX: M86.8X4 Other osteomyelitis, hand (principal); L02.511 Cutaneous abscess of right hand; Z87.891 Personal history of nicotine dependence; Z20.822 Contact with and (suspected) exposure to COVID-19
CPT/HCPCS: 36415; 76000; 80048; 81001; 85025; 85652; 87070; 87077; 87186; 87205; 88307; 88311; C1713; J1100; J1885; J2405; J2704; J3010; J3260; J3370; J3490; S0020; U0002

== ENCOUNTER 2021-02-24 08:41 | Observation (INO) | payer OTHER, SELFPAY ==
[2021-02-24] MEDS ORDERED: Iopamidol-370 76% 500 ML 1 ML ONE (08:54)
[2021-02-24 10:30] LABS: #Basophils 0.1 thou/uL (0.0-0.2); #Lymphocytes 1.7 thou/uL (1.20-3.40); #Neutrophils 7.3 thou/uL (1.40-6.50); %Basophils 0.8 % (0.0-1.0); %Eosinophils 16.2 % (0.0-10.0); %Lymphocytes 14.1 % (21.0-51.0); %Monocytes 8.5 % (0.0-10.0); %Neutrophils 60.4 % (42.0-75.0); Hemoglobin 14.8 g/dL (14.0-18.0); Mean Corpuscular HGB CONC 33.3 g/dL (32.0-36.0); Mean Corpuscular Hemoglobin 31.6 pg (27.0-31.0); Mean Corpuscular Volume 94.8 fL (78.0-98.0); Mean Platelet Volume 7.1 fL (7.4-10.4); Platelet Count 373 thou/uL (130-400); RBC Distribution Width 12.4 % (11.5-14.5); Red Blood Cell (RBC) Count 4.67 mill/uL (4.70-6.10); White Blood Cell (WBC) Count 12.1 thou/uL (4.8-10.8)
[2021-02-24 10:50] LABS: ALT (SGPT) 26 U/L (8-55); AST (SGOT) 17 U/L (5-34); Albumin 3.6 g/dL (3.5-5.0); Alkaline Phosphatase 211 U/L (40-110); Anion Gap 14 mmol/L (10-20); BUN (Urea Nitrogen) 12 mg/dL (8.4-25.7); Bilirubin, Total 0.4 mg/dL (0.2-1.2); Calc. Creatinine Clearance 0 mL/min (70-130); Calcium 8.7 mg/dL (7.8-10.44); Carbon Dioxide 27 mmol/L (22-29); Chloride 101 mmol/L (98-107); Globulin 3.2 g/dL (2.4-3.5); Glucose 104 mg/dL (70-105); Lipase 21 U/L (8-78); Potassium 3.8 mmol/L (3.5-5.1); Protein, Total 6.8 g/dL (6.0-8.3); Sodium 138 mmol/L (136-145)
[2021-02-24] MEDS ORDERED: Aspirin Chewable 81 MG TAB ONE (12:35)
[2021-02-24] MEDS ORDERED: Ondansetron PF 4 MG/2 ML Vial IVP PRN (14:22)
[2021-02-24] MEDS ORDERED: Ondansetron ODT 4 MG TAB PO PRN (14:22)
[2021-02-24] MEDS ORDERED: traMADol HCl 50 MG TAB ONE (14:27)
[2021-02-24] MEDS ORDERED: Nicotine 14 MG PATCH TD SCH (15:00)
[2021-02-24 15:16] LABS: Hemoglobin A1c 5.3 % (4.0-6.0)
[2021-02-24 16:53] VITALS: BMI 24.4
[2021-02-24] MEDS: HYDROcodone/Acetaminophen 7.5/325 mg Tablet PO PRN (17:45)
[2021-02-24] MEDS ORDERED: Sulfameth/Trimethoprim DS 800-160mg TAB PO SCH (21:00)
[2021-02-24] MEDS: Sulfameth/Trimethoprim DS 800-160mg TAB PO SCH (21:27)
[2021-02-25 01:24] LABS: SARS-CoV-2 PCR by NAA Not Detected (NotDetected)
[2021-02-25 04:07] LABS: Anion Gap 12 mmol/L (10-20); BUN (Urea Nitrogen) 8 mg/dL (8.4-25.7); Calc. Creatinine Clearance 118 mL/min (70-130); Calcium 9.2 mg/dL (7.8-10.44); Carbon Dioxide 27 mmol/L (22-29); Cardiac Risk 4.7 (Less than 4.5); Chloride 102 mmol/L (98-107); Cholesterol 166 mg/dl (< 200 Desired); Glucose 94 mg/dL (70-105); HDL Cholesterol 35 mg/dL (>60 Neg Risk); LDL Cholesterol, Calculated 107 mg/dL; Potassium 4.3 mmol/L (3.5-5.1); Sodium 137 mmol/L (136-145); Triglycerides 122 mg/dL (Less than 150)
[2021-02-25 04:38] LABS: Eosinophils 35 % (0-10); Hemoglobin 13.8 g/dL (14.0-18.0); Lymphocytes 12 % (21-51); MDiff Complete? YES; Mean Corpuscular HGB CONC 31.4 g/dL (32.0-36.0); Mean Corpuscular Hemoglobin 29.9 pg (27.0-31.0); Mean Corpuscular Volume 95.4 fL (78.0-98.0); Mean Platelet Volume 7.1 fL (7.4-10.4); Monocytes 14 % (0-10); Neutrophil 38 % (42-75); Platelet Count 371 thou/uL (130-400); RBC Distribution Width 12.5 % (11.5-14.5); Red Blood Cell (RBC) Count 4.62 mill/uL (4.70-6.10); White Blood Cell (WBC) Count 10.1 thou/uL (4.8-10.8)
[2021-02-25] MEDS ORDERED: Aspirin 81 mg Enteric Coated Tablet PO SCH (09:00)
[2021-02-25] MEDS: Sulfameth/Trimethoprim DS 800-160mg TAB PO SCH (09:24)
[2021-02-25] MEDS: HYDROcodone/Acetaminophen 7.5/325 mg Tablet PO PRN (09:24)
[2021-02-25 11:40] VITALS: TEMP 98.1
[2021-02-25 12:06] VITALS: BP 135/82
== END 2021-02-25 13:20 | disposition home or self-care (01) ==
LOC: ERS 08:41 → ERHOLD 14:03 → 2SE 16:23
PROVIDERS: ADMIT Student in an Organized Health Care Education/Training Program; ATTEND Student in an Organized Health Care Education/Training Program
DX: R42 Dizziness and giddiness (principal); H53.8 Other visual disturbances; R03.0 Elevated blood-pressure reading, without diagnosis of hypertension; F17.210 Nicotine dependence, cigarettes, uncomplicated; H54.61 Unqualified visual loss, right eye, normal vision left eye; R26.89 Other abnormalities of gait and mobility; B99.8 Other infectious disease; Z79.2 Long term (current) use of antibiotics; Z88.0 Allergy status to penicillin; Z20.822 Contact with and (suspected) exposure to COVID-19
CPT/HCPCS: 36415; 70496; 70498; 70551; 71045; 80048; 80053; 80061; 83036; 83690; 84443; 84484; 85025; 87635; 93005; 94760; G0378; Q9967; U0003; U0005

== ENCOUNTER 2021-03-20 08:12 | Observation (INO) | payer OTHER, SELFPAY ==
[2021-03-20 08:40] LABS: #Basophils 0.1 thou/uL (0.0-0.2); #Eosinphils 2.3 thou/uL (0.0-0.7); #Lymphocytes 1.5 thou/uL (1.20-3.40); #Monocytes 0.9 thou/uL (0.11-0.59); #Neutrophils 4.8 thou/uL (1.40-6.50); %Basophils 0.7 % (0.0-1.0); %Eosinophils 23.8 % (0.0-10.0); %Monocytes 9.2 % (0.0-10.0); %Neutrophils 50.3 % (42.0-75.0); Hemoglobin 14.1 g/dL (14.0-18.0); Mean Corpuscular HGB CONC 31.2 g/dL (32.0-36.0); Mean Corpuscular Hemoglobin 30.1 pg (27.0-31.0); Mean Corpuscular Volume 96.6 fL (78.0-98.0); Mean Platelet Volume 7.2 fL (7.4-10.4); Platelet Count 356 thou/uL (130-400); RBC Distribution Width 12.4 % (11.5-14.5); Red Blood Cell (RBC) Count 4.67 mill/uL (4.70-6.10); White Blood Cell (WBC) Count 9.6 thou/uL (4.8-10.8)
[2021-03-20 09:41] LABS: ALT (SGPT) 17 U/L (8-55); AST (SGOT) 13 U/L (5-34); Albumin 3.7 g/dL (3.5-5.0); Alkaline Phosphatase 167 U/L (40-110); Anion Gap 12 mmol/L (10-20); BUN (Urea Nitrogen) 8 mg/dL (8.4-25.7); Bilirubin, Total 0.4 mg/dL (0.2-1.2); CK (CPK) 31 U/L (30-200); Calc. Creatinine Clearance 0 mL/min (70-130); Calcium 9.6 mg/dL (7.8-10.44); Carbon Dioxide 29 mmol/L (22-29); Chloride 103 mmol/L (98-107); Globulin 3.3 g/dL (2.4-3.5); Glucose 119 mg/dL (70-105); Potassium 3.7 mmol/L (3.5-5.1); Sodium 140 mmol/L (136-145)
[2021-03-20 10:39] LABS: Bilirubin Negative (Negative); Blood, Urine Negative (Negative); Clarity Clear (Clear); Glucose, Urine (Dipstick) Normal (Negative); Ketone, Urine Negative (Negative); Leukocyte Negative Leu/uL (Negative); Nitrite Negative (Negative); Protein, Urine (Dipstick) 10 mg/dL (Neg-Trace); Specific Gravity, Urine 1.019 (1.002-1.036); Urobilinogen Normal mg/dL (Less than 2); pH, Urine 6.5 (5.0-9.0)
[2021-03-20] MEDS ORDERED: Aspirin Chewable 81 MG TAB ONE (10:39)
[2021-03-20 12:56] LABS: Troponin I 0.014 ng/mL (< 0.028)
[2021-03-20] MEDS ORDERED: Ondansetron ODT 4 MG TAB PO PRN (13:10)
[2021-03-20] MEDS ORDERED: Nitroglycerin 0.4 MG TAB (25 Tab Bottle) SL PRN (13:10)
[2021-03-20] MEDS ORDERED: Ondansetron PF 4 MG/2 ML Vial IVP PRN (13:10)
[2021-03-20 13:39] VITALS: BMI 24.3
[2021-03-20] MEDS ORDERED: Nicotine 14 MG PATCH TD SCH (14:00)
[2021-03-20 18:00] LABS: Troponin I Less than 0.010 ng/mL (< 0.028)
[2021-03-20] MEDS: Acetaminophen 325 MG TAB PO PRN (20:21)
[2021-03-20 20:45] LABS: SARS-CoV-2 PCR by NAA Not Detected (NotDetected)
[2021-03-21] MEDS: Acetaminophen 325 MG TAB PO PRN (08:17)
[2021-03-21] MEDS ORDERED: Enoxaparin Sodium 40 MG/0.4 ML SYRINGE SC SCH (09:00)
[2021-03-21] MEDS ORDERED: Aspirin Chewable 81 MG TAB PO SCH (09:00)
[2021-03-21] MEDS ORDERED: Lisinopril 5 MG TAB PO SCH (09:00)
[2021-03-21] MEDS ORDERED: Regadenoson 0.4 MG/5 ML SYRINGE ONE (11:15)
[2021-03-21 13:29] VITALS: BP 135/87; TEMP 97.6
[2021-03-21] MEDS ORDERED: Atorvastatin Calcium 10 MG TAB PO SCH (21:00)
[2021-03-21] MEDS ORDERED: Atorvastatin Calcium 40 MG TAB PO SCH (21:00)
== END 2021-03-21 13:20 | disposition home or self-care (01) ==
LOC: ERS 08:12 → ERHOLD 11:29 → 2SW 13:18
PROVIDERS: ADMIT Internal Medicine; ATTEND Hospitalist
DX: S22.41XS Multiple fractures of ribs, right side, sequela (principal); R07.89 Other chest pain; I10 Essential (primary) hypertension; F17.210 Nicotine dependence, cigarettes, uncomplicated; M06.9 Rheumatoid arthritis, unspecified; H54.61 Unqualified visual loss, right eye, normal vision left eye; R06.2 Wheezing; Z79.82 Long term (current) use of aspirin; Z79.899 Other long term (current) drug therapy; Z88.0 Allergy status to penicillin; Z20.822 Contact with and (suspected) exposure to COVID-19; V49.9XXS Car occupant (driver) (passenger) injured in unspecified traffic accident, sequela
CPT/HCPCS: 36415; 71045; 78452; 80053; 81003; 82550; 83690; 84484; 85025; 87635; 93005; 93017; A9500; G0378; J2785; U0003; U0005

== ENCOUNTER 2021-04-26 10:22 | Emergency (ER) | payer OTHER, SELFPAY ==
[2021-04-26] MEDS ORDERED: Ketorolac Tromethamine 30 MG/ML VIAL ONE (10:49)
== END 2021-04-26 11:13 | disposition home or self-care (01) ==
LOC: ERS 10:22
DX: M25.522 Pain in left elbow (principal); M25.521 Pain in right elbow; M06.342 Rheumatoid nodule, left hand; M06.341 Rheumatoid nodule, right hand; F17.210 Nicotine dependence, cigarettes, uncomplicated
CPT/HCPCS: 96374; J1885

== ENCOUNTER 2021-05-05 15:05 | Emergency (ER) | payer OTHER ==
[2021-05-05] MEDS ORDERED: Ketorolac Tromethamine 30 MG/ML VIAL ONE (17:36)
== END 2021-05-05 17:50 | disposition home or self-care (01) ==
LOC: ERS 15:05
DX: M06.9 Rheumatoid arthritis, unspecified (principal); F17.210 Nicotine dependence, cigarettes, uncomplicated
CPT/HCPCS: 96372; 99283; J1885